=== PATIENT | female | born 1955 | race Caucasian/White ===

== ENCOUNTER 2021-06-18 15:00 | Emergency (ER) | payer OTHER, SELFPAY ==
[2021-06-18 15:06] VITALS: BP 136/89; PULSE 77; RESP 16; TEMP 36.5; O2SAT 99
--- NOTE | 2021-06-18 15:38 | ED.GENADULT ---
HPI - General Adult General Chief complaint: Upper Respiratory Infection Stated complaint: sore throat cough Time Seen by Provider: 06/18/21 15:02 Source: patient Mode of arrival: ambulatory Limitations: no limitations History of Present Illness HPI narrative: 65 y/o female. PMHx Lupus. Presents to [facility] today with acute complaints of lingering sinus congestion and non-productive cough for the past 2 weeks. She notes to have had no relief with OTC remedies. Denies fever, chills. No [place], sore throat, otalgia. No chest pain, palpitations, dyspnea, edema. Pt tells me that she had negative Covid 19 testing at [facility]. She is without additional acute c/o illness upon PE. Related Data Home Medications Medication Instructions Recorded Confirmed hydroxychloroquine 200 mg PO BID 06/18/21 06/18/21 loratadine 10 mg PO DAILY 06/18/21 06/18/21 losartan 50 mg PO DAILY 06/18/21 06/18/21 sertraline 25 mg PO DAILY 06/18/21 06/18/21 Allergies Allergy/AdvReac Type Severity Reaction Status Date / Time No Known Allergies Allergy Verified 06/18/21 15:17 Review of Systems Review of Systems: CONSTITUTIONAL: Denies fever, chills, sweats. EYES: Denies visual changes, redness, discharge. ENT: Positive rhinorrhea, congestion. No sore throat, otalgia. CARDIOVASCULAR: Denies chest pain, palpitations, edema. RESPIRATORY: Denies dyspnea, wheezing, cough GASTROINTESTINAL: Denies abdominal pain, nausea, vomiting, diarrhea. GENITOURINARY: Denies dysuria, hematuria, abnormal discharge SKIN: Denies rash or itching. MUSCULOSKELETAL: Denies acute back pain, joint pain, or myalgia. NEUROLOGIC: Denies numbness, or focal weakness. PSYCHIATRIC: Denies anxiety or depression. All systems reviewed & are unremarkable except as noted in HPI and below Exam Narrative: GENERAL: This is a well-nourished, well-developed adult, in no apparent distress. HEAD: normocephalic, atraumatic. EYES: PERRL. Sclera clear/white. EARS: External ears normal, auditory canals clear and without drainage, TMs normal. NOSE: External nose normal. Positive Rhinorrhea, congestion. no obstruction, nares patent. THROAT: Mucous membranes moist, posterior pharynx erythematous. No exudates. NECK: Neck supple, non-tender without lymphadenopathy, masses or thyromegaly. CARDIOVASCULAR: Regular rate and rhythm without murmurs, gallops, or rubs. RESPIRATORY: Upper airway Rhonchi, cleared with cough. Breath sounds equal bilaterally. No wheezes, rales, or rhonchi. GASTROINTESTINAL: Abdomen soft, non-tender, nondistended. Bowel sounds are active. No guarding. SKIN: warm, intact with no suspicious lesions or rash, good texture and turgor. NEURO: Alert, active, and age appropriate. No focal neurologic deficits. EXTREMITIES: Negative. Course Vital Signs Vital signs: Vital Signs Temperature 36.5 C 06/18/21 15:06 Pulse Rate 77 06/18/21 15:06 Respiratory Rate 16 06/18/21 15:06 Blood Pressure 136/89 06/18/21 15:06 Pulse Oximetry 99 06/18/21 15:06 Temperature 36.5 C 06/18/21 15:06 Pulse Rate 77 06/18/21 15:06 Respiratory Rate 16 06/18/21 15:06 Blood Pressure 136/89 06/18/21 15:06 Pulse Oximetry 99 06/18/21 15:06 Medical Decision Making Differential Diagnosis Differential Diagnosis: Differential Diagnosis: Consideration of the following conditions may be warranted for the presenting problem, they are not final diagnoses: upper respiratory infection, otitis media, sinusitis, RSV viral infection, bronchitis, pharyngitis, Streptococcal sore throat, COVID-19, and other. Vital Signs Vital Signs: Vital Signs Temperature 36.5 C 06/18/21 15:06 Pulse Rate 77 06/18/21 15:06 Respiratory Rate 16 06/18/21 15:06 Blood Pressure 136/89 06/18/21 15:06 Pulse Oximetry 99 06/18/21 15:06 Temperature 36.5 C 06/18/21 15:06 Pulse Rate 77 06/18/21 15:06 Respiratory Rate 16 06/18/21 15:06 Blood Pressure 136/89 06/18/21
== END 2021-06-18 15:47 | disposition home or self-care (01) ==
PROVIDERS: Emergency Provider Nurse Practitioner Adult Health
DX: J06.9 Acute upper respiratory infection, unspecified (principal)
CPT/HCPCS: 87081; 87880; 99213; G0463